=== PATIENT | male | born 1980 | race Caucasian/White ===

== ENCOUNTER 2020-03-23 19:13 | Emergency (ER) | payer SELFPAY ==
[~2020-03-23] VITALS: Ht 182.9 cm; Wt 92.7 kg
[~2020-03-23 19:13] MED LIST: ATARAX50 MG PO; SEROQUEL 200MG200 MG PO; ZOLOFT 100MG100 MG PO
[2020-03-23 19:21] VITALS: TEMP 98.9
[2020-03-23] MEDS ORDERED: FLEXERIL 1010 MG/TAB PO (20:46)
[2020-03-23] MEDS ORDERED: MEDROL 4MG DOSPA4 MG PO (20:46)
[2020-03-23] MEDS ORDERED: LIDODERM 5% PATC1 EA TP (20:46)
[2020-03-23] MEDS ORDERED: NORCO 325 MG-51 TAB PO (20:46)
[2020-03-23 21:32] VITALS: BP 135/81; PULSE 81
== END 2020-03-23 21:31 | disposition home or self-care (01) ==
LOC: COL.ER 19:13
DX: S39.012A Strain of muscle, fascia and tendon of lower back, initial encounter (principal); F41.9 Anxiety disorder, unspecified; F43.10 Post-traumatic stress disorder, unspecified; F32.9 Major depressive disorder, single episode, unspecified; X50.0XXA Overexertion from strenuous movement or load, initial encounter; Y92.69 Other specified industrial and construction area as the place of occurrence of the external cause
CPT/HCPCS: J1885

== ENCOUNTER 2020-06-05 17:39 | Emergency (ER) | payer BC ==
[~2020-06-05] VITALS: Ht 182.9 cm; Wt 93.2 kg
[~2020-06-05 17:39] MED LIST changes: +FLEXERIL 1010 MG/TAB PO; +LIDODERM 5% PATC1 EA TP; +MEDROL 4MG DOSPA4 MG PO; +NORCO 325 MG-51 TAB PO
[2020-06-05 18:06] VITALS: TEMP 97.1
[2020-06-05] MEDS ORDERED: TRIAMCINOLONE A15 G3 TP (19:16)
[2020-06-05 19:34] VITALS: BP 133/81; PULSE 87
== END 2020-06-05 19:36 | disposition home or self-care (01) ==
LOC: COL.ER 17:39
DX: L25.9 Unspecified contact dermatitis, unspecified cause (principal); F43.10 Post-traumatic stress disorder, unspecified; F41.9 Anxiety disorder, unspecified; F32.9 Major depressive disorder, single episode, unspecified; Z87.891 Personal history of nicotine dependence

== ENCOUNTER 2020-06-30 17:06 | Emergency (ER) | payer BC ==
[~2020-06-30] VITALS: Ht 182.9 cm; Wt 93.2 kg
[~2020-06-30 17:06] MED LIST changes: +TRIAMCINOLONE A15 G3 TP
[2020-06-30 17:10] VITALS: TEMP 97.5
[2020-06-30 17:33] LABS: BASO # 0.1 (0.0-0.2); BASO % 0.7 % (0.0-2.0); EOS # 0.4 (0.0-0.7); EOS % 2.5 % (0-4.0); GRAN # 9.4 (1.4-6.5); GRAN % 60.7 % (42.2-75.2); HEMATOCRIT 47.2 % (42.0-52.0); HEMOGLOBIN 15.3 g/dl (13.5-18.0); LYMPH # 4.5 (1.2-3.4); LYMPH % 29.4 % (20.0-51.0); MEAN CELL VOLUME 83 fl (80.0-100.0); MEAN CORPUSCULAR HEMOGLOBIN 27 pg (27.0-31.0); MEAN CORPUSCULAR HGB CONC 32 g/dl (33.0-37.0); MEAN PLATELET VOLUME 10.8 fl (7.4-10.4); MONO % 6.2 % (1.7-9.3); PLATELET COUNT 290 K/mm3 (130-400)
[2020-06-30 17:43] LABS: ALANINE AMINOTRANSFERASE 26 U/L (4-49); ALBUMIN 4.5 gm/dL (3.5-5.0); ALKALINE PHOSPHATASE 84 U/L (50-136); ANION GAP 8 mmol/L (7-16); AST,SGOT 24 U/L (15-37); BILIRUBIN,TOTAL 0.6 mg/dL (0.0-1.0); BLOOD UREA NITROGEN 16 mg/dL (9-20); CALCIUM 9.1 mg/dL (8.4-10.2); CARBON DIOXIDE 28 mmol/L (22-30); CHLORIDE 104 mmol/L (98-107); CREATININE, serum 1.24 (0.66-1.25); GLUCOSE 82 mg/dL (74-106); POTASSIUM 4.4 mmol/L (3.4-5.0); SODIUM 140 mmol/L (137-145); TOTAL PROTEIN 7.5 gm/dL (6.4-8.2)
[2020-06-30 17:58] LABS: TROPONIN-I < 0.012 ng/mL (0.000-0.035)
[2020-06-30 18:02] LABS: PROTHROMBIN TIME 11.5 SECONDS (9.7-12.8)
[2020-06-30 18:05] LABS: PARTIAL THROMBOPLASTIN TIME 34.3 SECONDS (26.0-37.0)
[2020-06-30 19:33] LABS: C-REACTIVE PROTEIN < 0.5 mg/dL (0.0-0.9)
[2020-06-30 19:41] LABS: TROPONIN-I < 0.012 ng/mL (0.000-0.035)
[2020-06-30] MEDS ORDERED: MOTRIN 400400 MG/TAB PO (20:30)
[2020-06-30] MEDS ORDERED: ROBAXIN 50500 MG/TAB PO (20:31)
[2020-06-30 20:44] VITALS: BP 145/99; PULSE 72
== END 2020-06-30 20:45 | disposition home or self-care (01) ==
LOC: COL.ER 17:06
PROVIDERS: Family Medicine
DX: R07.9 Chest pain, unspecified (principal); Z88.6 Allergy status to analgesic agent
CPT/HCPCS: J1885

== ENCOUNTER 2020-10-09 19:14 | Emergency (ER) | payer BC ==
[~2020-10-09] VITALS: Ht 182.9 cm; Wt 93.2 kg
[~2020-10-09 19:14] MED LIST changes: +MOTRIN 400400 MG/TAB PO; +ROBAXIN 50500 MG/TAB PO
[2020-10-09 19:21] VITALS: TEMP 98.1
[2020-10-09 20:05] VITALS: BP 121/86; PULSE 81
== END 2020-10-09 20:06 | disposition home or self-care (01) ==
LOC: COL.ER 19:14
DX: L25.5 Unspecified contact dermatitis due to plants, except food (principal); Z87.891 Personal history of nicotine dependence

== ENCOUNTER 2021-06-04 10:22 | Emergency (ER) | payer BC ==
[~2021-06-04] VITALS: Ht 182.9 cm; Wt 93.2 kg
[2021-06-04 12:00] VITALS: BP 136/74; PULSE 78; TEMP 98.1
== END 2021-06-04 12:03 | disposition home or self-care (01) ==
LOC: COL.ER 10:22
DX: S00.31XA Abrasion of nose, initial encounter (principal); F32.A Depression, unspecified; Z79.899 Other long term (current) drug therapy; W20.8XXA Other cause of strike by thrown, projected or falling object, initial encounter; Y99.0 Civilian activity done for income or pay